=== PATIENT | male | born 1960 | race Caucasian/White ===

== ENCOUNTER 2024-06-12 05:54 | Day surgery (SDC) | payer OTHER, SELFPAY ==
--- NOTE | 2024-06-02 09:21 | VNURNOTE ---
Attempted to contact patient to review [facility] joint protocol/ VN services. Phone number listed not in service. No alternate # listed. PAT notified.
--- NOTE | 2024-06-02 10:01 | VNURNOTE ---
Obtained correct phone number: [phone].
Patient is scheduled for an elective L TKA on 06/12/24- he is a same day patient with Dr Kee. Spoke with patient prior to surgery. Introduced role of [facility] Liaison. Patient reports that he lives with his in a MULTI story home.
There are 2 steps to enter and a flight of steps to the second floor.
There is a powder room on the post doctoral fellow. He currently functions independently. He will be obtaining a cane and rolling walker- he may borrow from a friend.
PCP is through [facility] on [address]
Discussed [facility] joint protocol and post surgical plans.
Reviewed that he will have VN services initially and will then start outpatient PT.
Patient selects VN for his home care needs and has not scheduled outpt PT at time of call. Advised pt to schedule outpt PT for early in the week of Jun 16.
Patient is in agreement with plan and states that his will be home with him. Carol Ann [phone]. Advised to bring RW with him day of surgery. Outpt date/location TBD. [facility] referral in [facility].
Plan: [facility] per [facility] joint protocol then outpt PT TBD
[2024-06-06 14:01] VITALS: BMI 27.9
[2024-06-06 14:30] LABS: Hematocrit 45.8 % (39.0-52.0); Mean Corp Hgb Conc. 34.9 g/dL (33.0-37.0); Mean Corpuscular Volume 85.8 fL (80.0-94.0); Mean Platelet Volume 9.4 fL (7.4-10.4); Platelet Count 289 10^3/uL (130-400); Red Blood Cell Count 5.34 10^6/uL (4.70-6.10); Red Cell Dist. Width 11.9 % (11.5-14.5); White Blood Cell Count 4.2 10^3/uL (4.8-10.8)
[2024-06-06 14:55] LABS: ALT (SGPT) 38 U/L (0-50); AST (SGOT) 32 U/L (17-59); Alkaline Phosphatase 52 U/L (38-126); Blood Urea Nitrogen 21 mg/dl (9-20); Calcium 9.7 mg/dl (8.4-10.2); Carbon Dioxide 24 mmol/L (22-30); Chloride 100 mmol/L (98-107); Estimated Creatinine Clearance 80 ml/min; Glucose 86 mg/dl (70-99); Potassium 4.6 mmol/L (3.5-5.1); Sodium 135 mmol/L (135-145); Total Bilirubin 2.8 mg/dl (0.2-1.3); Total Protein 7.2 g/dl (6.3-8.2); eGFR > 60.00
[2024-06-06 16:24] VITALS: BMI 27.9
[2024-06-12] VITALS (13 sets, daily range): BP systolic 88–152; BP diastolic 53–92; PULSE 69; O2SAT 98
[2024-06-12] MEDS: TYLENOL 650 MG PO (06:16)
[2024-06-12] MEDS: CELEBREX 200 MG PO (06:17)
[2024-06-12] MEDS: NORMOSOL-R/PLASMALYTE-A 1000 IV (06:42)
[2024-06-12] MEDS: ANCEF 5 IV (11:03)
[2024-06-12] MEDS: ROXICODONE 5 MG PO (12:04)
--- NOTE | 2024-06-12 16:42 | OR.RPT ---
Operative Report
Operative Report
Orthopaedic Surgery Operative Note
DATE OF OPERATION: 06/12/2024
PREOPERATIVE DIAGNOSES: Osteoarthritis, left knee.
POSTOPERATIVE DIAGNOSES: Osteoarthritis, left knee.
OPERATION PERFORMED:
1) Left total knee arthroplasty (CPT 35314)
2) Intraosseous administration of analgesic (CPT 43776)
SURGEON: Jey Kee MD
ASSISTANTS: Jasson Mena PA-C who helped with patient and limb positioning and retraction
ANESTHESIA: Spinal by anesthesia plus intraoperative infusion of morphine into the tibial metaphysis by Dr. Kee
COMPLICATIONS: None.
ESTIMATED BLOOD LOSS: 20mL
DRAINS: None
TOURNIQUET TIME: 61 minutes.
IMPLANTS:
- Gonzalo Persona CR Femur, size 8
- Gonzalo Persona tibia base plate, size E
- Gonzalo Persona ultracongruent articular surface, 10 mm
- DJO Bigfoot bone cement
INDICATIONS: The patient presented to my office with debilitating left knee pain due to osteoarthritis. We reviewed the natural history of this problem, as well as the risks, benefits, and alternatives of various treatment options. The patient
exhausted all nonoperative treatment options and wished to proceed with knee replacement surgery. The patient understood the risks which included, but were not limited to, bleeding, infection, failure to relieve pain, more pain than preop, damage to
blood vessels and nerves, need for reoperation, mechanical failure of the implants, wound healing problems, stiffness, instability, blood clot, pulmonary embolism, myocardial infarction, pneumonia, arrhythmia, CVA, and . The patient accepted
these risks and wished to proceed. All questions were answered, and informed consent was obtained.
PROCEDURE IN DETAIL: The patient was identified in the preoperative holding area. The left knee was identified as the operative site. The patient was taken in the operating room and placed in a supine position on the operating table. Spinal
anesthesia was performed. IV antibiotics and tranexamic acid were administered. An SCD was placed on the right lower extremity. A well-padded tourniquet was placed on the proximal thigh. All bony prominences were well padded. The left lower
extremity was prepped and draped in the usual sterile fashion.
We performed a surgical time-out. An interarticular block was performed with local anesthetic with epinephrine. The limb was exsanguinated with an Esmarch bandage, then the tourniquet was inflated to 250 mmHg. I performed interosseous administration
of morphine-saline solution via a Jamshidi style intraosseous needle into the proximal medial tibial metaphysis as described by Dayday Romero MD. This was performed to aid in pain control. A midline skin incision was made followed by a medial
parapatellar arthrotomy. A subperiosteal peel was performed on the medial tibia. I excised part of the infrapatellar fat pad to improve our visualization as well as tissue over anterior femur. The patella was everted and the knee was flexed. I
excised the remnants of the anterior and posterior cruciate ligaments as well as tibial and femoral osteophytes with rongeurs.
The knee was flexed, and the extramedullary tibial cutting guide was aligned. Republic was aligned at neutral, rotation was centered on the tibial tubercle, and coronal alignment was aligned with the mechanical axis of the tibia and center of the ankle
joint. The cut height was 10mm off the lateral tibia joint surface. The guide was secured into place. The MCL and LCL were protected. The tibia surface was cut. The cut surface was inspected after removal to ensure appropriate height and slope based
on the preoperative plan. The cut was checked with a drop norberto. It was centered nicely at the ankle.
A drill was used to open the femoral canal. The intramedullary distal femoral cutting guide was inserted into the femur. This was set at 5 degrees +0. This was secured into place with three pins. The cut level was checked with an erin wing. The
distal femur was cut through the cutting guide. The IM guide was reinserted to double check that the level of resection was flush and in appropriate alignment.
Venetia's line and the transepicondylar axis were marked on the femur. The femoral sizing guide was applied to the anterior femur. Pins were inserted, and the 4-in-1 cutting guide was applied and secured into place. The rotation was compared to
Venetia's line, the transepicondylar axis, and the neutral tibia cut and was found to be appropriate. The width was checked and found to be appropriate and lateralized on the femur. The anterior, posterior, and chamfur cuts were made. A lamina
railroad crossing protection maintainer was used to open the flexion gap, and posterior osteophytes were removed with a curved osteotome. The remnant medial and lateral meniscus were also removed. I prophylactically cauterized the lateral geniculate arteries. A 10mm spacer block
was applied to the flexion gap and was noted to be balanced medially and laterally. The knee was extended, and the block showed symmetric to extension and flexion gaps.
The tibia was exposed and sized. Rotation was set in line with the tibial tubercle and congruent with the femur. The trial was secured into place with two pins. The trial femur was impacted into place, and a trial articular surface was placed. The
knee was taken through range of motion and noted to be stable throughout the arc of motion without gaping or excess tension. In extension, a measured resection of the patella was performed. The patella was sized, and lug holes were drilled. A trial
patella component was applied, and it was noted to track centrally throughout the arc of motion without need for further releases.
The trials were removed. The tibia keel was prepared with the punch and the drill. The bone surfaces were irrigated with sterile saline and dried. The cement was mixed in a vacuum mixer. Cement gun was used to apply cement to the tibial surface and
the undersurface of the tibial implant. Cement was pressurized into the tibial canal and tibia surface. The tibial component was impacted into place. Excess cement was removed. Cement was applied to the femoral surface and the femoral component. The
femoral component was impacted into place, and excess cement removed. A trial articular surface was inserted, and the knee was extended while the cement polymerized. The tourniquet was let down, and meticulous hemostasis was achieved. Dilute
betadine was poured into the wound and allowed to soak for 3 minutes. The knee was irrigated with copious normal saline.
Once the cement was polymerized, the trial articular surface was removed. Any excess cement was removed. The knee was trialed, and the final articular surface was selected and inserted into the tibial locking mechanism. The knee was reduced. A fresh
drape was applied to the surgical field.
The arthrotomy was closed with 0-PDS. Once closed, an interarticular block was performed with local anesthetic with epi. The deep dermal layer was closed with 2-0 PDS, and the subcuticular skin was closed with 3-0 monocryl. A Dermabond Prineo
dressing was applied to the skin in full flexion. Once this was completely dry, a sterile waterproof dressing was applied.
The anesthesia team performed an adductor canal block in the OR. The patient awoke from anesthesia without any difficulties. The sponge and instrument counts were correct x2 at the end of the case.
Cachorro Kee MD
== END 2024-06-12 12:54 | disposition home health service (06) ==
LOC: SDS 05:54
PROVIDERS: ATTENDING PHYSICIAN Orthopaedic Surgery; FAMILY PHYSICIAN Family Medicine
DX: M17.12 Unilateral primary osteoarthritis, left knee (principal); K21.9 Gastro-esophageal reflux disease without esophagitis; E78.5 Hyperlipidemia, unspecified
CPT/HCPCS: 27447; 73560; 36415; 80053; 83036; 85027; 87070; 97116; 97162; C1713; C1776

== ENCOUNTER 2024-06-12 23:08 | Emergency (ER) | payer OTHER, SELFPAY ==
[2024-06-12 23:18] VITALS: BP 134/100
[2024-06-12 23:55] LABS: % Basophils 0.1 % (0-2); % Immature Granulocytes 0.3 % (0-0.5); % Lymphocytes 2.3 % (20.5-51.1); % Monocytes 4.5 % (1.7-9.3); % Neutrophils 92.8 % (42.2-75.2); Absolute Immature Granulocytes 0.1 10^3/uL (0-0.05); Absolute Lymphocytes 0.4 10^3/uL (1.2-3.4); Absolute Monocytes 0.8 10^3/uL (0.1-0.6); Absolute Neutrophils 15.9 10^3/uL (1.4-6.5); Hemoglobin 13.7 g/dL (13.0-18.0); Mean Corp Hgb Conc. 36.1 g/dL (33.0-37.0); Mean Corpuscular Hgb 30.1 pg (27.0-31.0); Mean Corpuscular Volume 83.5 fL (80.0-94.0); Mean Platelet Volume 9.7 fL (7.4-10.4); Nucleated Red Blood Cells % 0 % (-); Platelet Count 279 10^3/uL (130-400); Red Blood Cell Count 4.55 10^6/uL (4.70-6.10); Red Cell Dist. Width 11.6 % (11.5-14.5); White Blood Cell Count 17.2 10^3/uL (4.8-10.8)
[2024-06-13 00:08] LABS: ALT (SGPT) 28 U/L (0-50); AST (SGOT) 30 U/L (17-59); Albumin 3.9 g/dl (3.5-5.0); Alkaline Phosphatase 57 U/L (38-126); Blood Urea Nitrogen 21 mg/dl (9-20); Calcium 9.7 mg/dl (8.4-10.2); Carbon Dioxide 25 mmol/L (22-30); Chloride 94 mmol/L (98-107); Glucose 178 mg/dl (70-99); Potassium 4.3 mmol/L (3.5-5.1); Sodium 125 mmol/L (135-145); Total Bilirubin 2.4 mg/dl (0.2-1.3); Total Protein 6.3 g/dl (6.3-8.2); eGFR > 60.00
[2024-06-13 00:21] LABS: Troponin I < 0.012 ng/ml
[2024-06-13 00:55] VITALS: BP 155/81
[2024-06-13 01:00] VITALS: BP 147/88
[2024-06-13 01:18] VITALS: BMI 29.4
[2024-06-13] MEDS: NSS 1000 IV (01:37)
[2024-06-13 02:00] VITALS: BP 129/83
--- NOTE | 2024-06-13 02:20 | ED.GENMED ---
History of Present Illness
General
Chief Complaint: Abdominal Symptoms
Source: patient
Exam Limitations: none
Time Seen by Provider: 06/13/24 00:55
Nursing documentation reviewed up to this point in time: agreed with
History of Present Illness
History of Present Illness:
This a pleasant 63-year-old male that presents to the emergency department with epigastric pain that occurred upon discharge from the hospital after knee replacement surgery earlier today. Patient does have an extensive history with GERD and has
been on Prilosec in the past. He had hold his medications 2 days in advance. When he awakened from surgery today, he felt this familiar pain. Patient states that it is more severe than typical. He does report occasional nausea but has not had
any vomiting. He has been belching but has not had any flatus since the surgery. Denies fever, chills, chest pain other than described, or any shortness of breath. He states that lying back exacerbates his symptoms.
Review of Systems
Review of Systems
Allergies reviewed?: Yes
Other source history: family ( is present at the bedside)
All Other Systems: ROS reviewed and negative except as documented in HPI and ROS
Constitutional: Reports no symptoms
EENT: Reports no symptoms
Respiratory: Reports no symptoms
Cardiac: Reports chest pain; Denies palpitations or syncope
ABD/GI: Reports nausea; Denies abdominal pain or vomiting
: Reports no symptoms
Musculoskeletal: Reports no symptoms
Skin: Reports no symptoms
Neurological: Reports no symptoms
Endocrine: Reports no symptoms
Hematologic/Lymphatic: Reports no symptoms
Psychiatric: Reports no symptoms
Phy Exam
General Physical Exam
General Presentation: well appearing and no apparent distress
General Skin: warm and dry
General Habitus: normal
General Mental: alert
General Hydration: appears well hydrated
ENT Exam
ENT Exam: EOMI, pharynx normal, neck supple and normocephalic
Eye Exam
Eye Exam: PERRL, cornea clear and conjunctiva normal
Cardiovascular Exam
Cardiovascular Exam: regular rate/rhythm, no edema, no murmur and normal peripheral pulses
Pulmonary Exam
Pulmonary Exam: lungs clear, no respiratory distress, no rales, no crackles, no rhonchi, no stridor, no wheezing and no cough
Gastrointestinal Exam
Gastrointestinal Exam: normal bowel sounds, non tender, soft, no organomegaly, no pulsatile mass and non distended
Neurological Exam
Neurological Exam: alert, oriented x3, no motor deficits and speech normal
Musculoskeletal Exam
Musculoskeletal Exam: full ROM, no edema, neuro vasc intact and other (Wound is dressed, dressing appears intact)
Skin Exam
Skin Exam: normal color, warm/dry, no rash and no petechia
Psychiatric Exam
Psychiatric Exam: normal mood/affect
Course
Orders/Labs/Results
Orders:
Orders
06/12/24 23:10
EKG [Electrocardiogram (*1)] Urgent
Reason for Study: Chest Pain
06/12/24 23:11
EKG- Treatment ONCE
06/12/24 23:32
Complete Blood Count/With Diff Urgent
Comprehensive Metabolic Panel Urgent
Troponin I Urgent
06/13/24 01:22
0.9% Sodium Chloride 1000 ml [Nss] 1,000 ml IV BOLUS
06/13/24 02:21
Mag Hydrox/Al Hydrox/Simeth [Maalox] 30 ml Phenobarb/Hyoscy/Atropine/Scop [] 10 ml Viscous Lidocaine 2% [Xylocaine Viscous Cup] 10 ml PO NOW
06/13/24 02:32
Phenobarb/Hyoscy/Atropine/Scop [] 10 ml .ROUTE .STK-MED ONE
06/13/24 02:33
Mag Hydrox/Al Hydrox/Simeth [Maalox] 30 ml .ROUTE .STK-MED ONE
Viscous Lidocaine 2% [Xylocaine Viscous Cup] 15 ml .ROUTE .STK-MED ONE
06/13/24 03:41
Complete Blood Count/With Diff Urgent
Comprehensive Metabolic Panel Urgent
Abnormal Lab Results
06/12/24 06/13/24
23:32 03:41
WBC 17.2 H 10^3/uL 15.2 H 10^3/uL
(4.8-10.8) (4.8-10.8)
RBC 4.55 L 10^6/uL 4.00 L 10^6/uL
(4.70-6.10) (4.70-6.10)
Hgb 12.0 L g/dL
(13.0-18.0)
Hct 38.0 L % 33.4 L %
(39.0-52.0) (39.0-52.0)
Abs Immat Gran (auto) 0.1 H 10^3/uL 0.1 H 10^3/uL
(0-0.05) (0-0.05)
Absolute Neuts (auto) 15.9 H 10^3/uL 13.6 H 10^3/uL
(1.4-6.5) (1.4-6.5)
Absolute Lymphs (auto) 0.4 L 10^3/uL 0.5 L 10^3/uL
(1.2-3.4) (1.2-3.4)
Absolute Monos (auto) 0.8 H 10^3/uL 1.0 H 10^3/uL
(0.1-0.6) (0.1-0.6)
Immature Gran % 0.9 H %
(0-0.5)
Neutrophils % 92.8 H % 89.3 H %
(42.2-75.2) (42.2-75.2)
Lymphocytes % 2.3 L % 3.1 L %
(20.5-51.1) (20.5-51.1)
Sodium 125 L mmol/L 128 L mmol/L
(135-145) (135-145)
Chloride 94 L mmol/L 94 L mmol/L
(98-107) (98-107)
BUN 21 H mg/dl
(9-20)
Glucose 178 H mg/dl 148 H mg/dl
(70-99) (70-99)
Total Bilirubin 2.4 H mg/dl 2.3 H mg/dl
(0.2-1.3) (0.2-1.3)
Total Protein 5.5 L g/dl
(6.3-8.2)
06/13/24 03:41
06/13/24 03:41
Vital Signs
Initial and Last Documented VS:
Initial Vital Signs
Temp Pulse Resp BP Pulse Ox
98.1 F 105 18 134/100 97
06/12/24 23:18 06/12/24 23:18 06/12/24 23:18 06/12/24 23:18 06/12/24 23:18
Last Documented Vital Signs
Temp Pulse Resp BP Pulse Ox
98.1 F 79 14 137/90 96
06/12/24 23:18 06/13/24 03:00 06/13/24 03:00 06/13/24 03:00 06/13/24 03:38
*Pulse Oximetry
Patient hypoxic: no
*EKG
Interpreted by ED Provider?: Yes
*Critical Care Note
Total Time (30-74mins, 75-104mins- exclusive of procedures): Not Applicable
Update Note
Update Note:
Discussed lab work with patient. Sodium is coming up. Patient will have it rechecked by his family doctor. He will continue to follow orthopedics recommendations for postsurgical care of his knee replacement. He wishes to be discharged. He will
restart his Prilosec. He will take Carafate as prescribed. He will return with any changing or worsening of symptoms. First troponin was negative. That was almost 12 hours after the onset of symptoms.
EKG showed sinus rhythm rate of 72 with normal intervals, left axis deviation. No evidence of acute ischemia present. No old EKG available for comparison.
ED Attending Note
-
Portions of this chart may have been created with voice recognition software.� Occasional wrong word or��sound alike� substitutions may have occurred due to the inherent limitations of voice recognition software.
Discharge Plan
Departure
Patient Disposition: Home (Routine Discharge)
Date of Disposition: 06/13/24
Time of Disposition: 04:33
Patient with high blood pressure during this ER visit?: Yes
Discharge Problem:
Chronic GERD, Acute hyponatremia
Instructions: Acid reflux and GERD in adults, Hyponatremia, BLOOD PRESSURE
Prescriptions:
New
sucralfate [Carafate] 100 mg/mL suspension
10 ml PO BID Qty: 200 0RF
No Action
rosuvastatin 10 mg Tablet
10 mg PO DAILY
omeprazole 20 mg Tablet,Delayed Release (Dr/Ec)
20 mg PO DAILY
mupirocin 2 % ointment
1 applic topical BID Qty: 1 0RF
celecoxib 200 mg capsule
200 mg PO DAILY Qty: 14 0RF
Rx Instructions:
*take with food
*post-op use only
gabapentin 300 mg capsule
300 mg PO HS Qty: 10 0RF
Rx Instructions:
*POST-OP USE ONLY
dexamethasone 4 mg tablet
4 mg PO BID Qty: 6 0RF
Rx Instructions:
take with food
post-op use only
ondansetron 4 mg tablet,disintegrating
4 mg PO Q6H PRN (Reason: n/v) Qty: 20 0RF
Rx Instructions:
take 1/2h b/f pain med if recurrent nausea
allow to dissolve in mouth w/o water
oxycodone 5 mg tablet
5 mg PO Q6H PRN (Reason: 1 tab moderate pain, 2 tabs severe pain) Qty: 30 0RF
Rx Instructions:
Ongoing therapy
POST-OP USE ONLY
aspirin 325 mg tablet
325 mg PO DAILY Qty: 30 0RF
Rx Instructions:
Take daily x4 weeks for blood clot prevention.
docusate sodium [Colace] 100 mg capsule
100 mg PO BID Qty: 30 0RF
sennosides [senna] 8.6 mg tablet
17.2 mg PO BID Qty: 30 0RF
acetaminophen 500 mg Tablet
1,000 mg PO Q6H Qty: 60 0RF
Rx Instructions:
DO NOT exceed >4000 mg daily.
Referrals:
Tra Suarez DO [Family Provider] -
Activity Restrictions/Additional Instructions:
As discussed, please take the Carafate as directed. Your sodium was low today. Continue to eat a normal diet as tolerated. Follow-up with your family doctor in about a week to repeat sodium levels.
It was a pleasure meeting you and taking part in your care. We hope for your continued healing and wellness.
Please read discharge instructions in their entirety. However, they are for general education and may not describe your exact diagnosis at discharge. Information on your ER visit and medical conditions were discussed with you along with appropriate
follow up information...
If indicated, please take your medications as instructed and indicated on discharge paperwork.
Please schedule a follow up appointment as directed. Call to schedule an appointment
Please return to the emergency department with ANY change in, persisting, or worsening of symptoms. If any of your symptoms do not improve, or persist, or become more severe within 6-12 hours, please return to the emergency department for further
care.
Please return to the emergency department if you develop a headache, neck pain/stiffness, fever greater than 100.4F, chest pain, shortness of breath, persistent nausea, vomiting, slurred speech, difficulty walking, numbness/tingling, weakness, signs
of infection or any other symptoms that are worrisome to you.
If you have any questions or concerns please do not hesitate to call the Hospital at or E-mail me directly at [email or web address]
Interventions
Interventions:
*Risk Screen - Suicide Last Done: 06/12/24 23:18
*General Assessment Last Done: 06/13/24 01:11
*Neglect/Abuse Screening Last Done: 06/13/24 01:11
ED- Fall Risk Assessment Last Done: 06/13/24 01:11
*ED COVID-19 Vaccine History Last Done: 06/13/24 01:11
DI-Pcprih-Xnuwrpbhzx Assessment Last Done: 06/13/24 01:11
Discharge Date and Time
Print Language: TELUGU
[2024-06-13] MEDS: MAALOX 50 PO (02:35)
[2024-06-13 03:00] VITALS: BP 137/90
[2024-06-13 03:54] LABS: % Basophils 0.1 % (0-2); % Immature Granulocytes 0.9 % (0-0.5); % Lymphocytes 3.1 % (20.5-51.1); % Monocytes 6.6 % (1.7-9.3); % Neutrophils 89.3 % (42.2-75.2); Absolute Immature Granulocytes 0.1 10^3/uL (0-0.05); Absolute Lymphocytes 0.5 10^3/uL (1.2-3.4); Absolute Neutrophils 13.6 10^3/uL (1.4-6.5); Hematocrit 33.4 % (39.0-52.0); Mean Corp Hgb Conc. 35.9 g/dL (33.0-37.0); Mean Corpuscular Volume 83.5 fL (80.0-94.0); Mean Platelet Volume 9.3 fL (7.4-10.4); Nucleated Red Blood Cells % 0 % (-); Platelet Count 254 10^3/uL (130-400); Red Cell Dist. Width 11.6 % (11.5-14.5); White Blood Cell Count 15.2 10^3/uL (4.8-10.8)
[2024-06-13 04:00] VITALS: BP 122/76
[2024-06-13 04:22] LABS: ALT (SGPT) 25 U/L (0-50); AST (SGOT) 23 U/L (17-59); Albumin 3.6 g/dl (3.5-5.0); Alkaline Phosphatase 46 U/L (38-126); Blood Urea Nitrogen 20 mg/dl (9-20); Calcium 9.1 mg/dl (8.4-10.2); Carbon Dioxide 26 mmol/L (22-30); Chloride 94 mmol/L (98-107); Estimated Creatinine Clearance 90 ml/min; Glucose 148 mg/dl (70-99); Sodium 128 mmol/L (135-145); Total Bilirubin 2.3 mg/dl (0.2-1.3); Total Protein 5.5 g/dl (6.3-8.2); eGFR > 60.00
[2024-06-13 04:39] VITALS: BP 130/86
== END 2024-06-13 04:55 | disposition home or self-care (01) ==
LOC: EMR 23:08
PROVIDERS: Emergency Medicine; EMERGENCY PHYSICIAN Student in an Organized Health Care Education/Training Program; FAMILY PHYSICIAN Family Medicine
DX: K21.9 Gastro-esophageal reflux disease without esophagitis (principal); E87.1 Hypo-osmolality and hyponatremia; Z96.659 Presence of unspecified artificial knee joint
CPT/HCPCS: 99283; 96374; 80053; 84484; 85025; 93005